=== PATIENT | female | born 1945 | race Two or more races ===

== ENCOUNTER 2020-04-19 13:58 | Outpatient (CLI) | payer OTHER | END 2020-04-19 14:07 | disposition home or self-care (01) | LOC: RAD 13:58 | PROVIDERS: ATTEND Specialist | DX: R05 Cough (principal) ==

== ENCOUNTER → 2020-10-14 | Outpatient (CLI) | payer OTHER | END | disposition home or self-care (01) | LOC: RAD 14:20 | PROVIDERS: ATTEND Orthopaedic Surgery Hand Surgery | DX: M41.84 Other forms of scoliosis, thoracic region (principal); S52.532A Colles' fracture of left radius, initial encounter for closed fracture ==

== ENCOUNTER 2021-02-07 15:05 | Outpatient (CLI) | payer OTHER | END 2021-02-07 15:12 | disposition home or self-care (01) | LOC: RAD 15:05 | DX: M50.323 Other cervical disc degeneration at C6-C7 level (principal); M40.294 Other kyphosis, thoracic region ==